=== PATIENT | female | born 1965 | race Hispanic/Latino ===

== ENCOUNTER 2023-03-24 16:12 | Emergency (ER) | payer MEDICAID, SELFPAY ==
[2023-03-24 16:28] VITALS: BP 112/85; PULSE 73; RESP 16; TEMP 37; O2SAT 99
--- NOTE | 2023-03-24 16:50 | ED.URI ---
HPI - URI/Sore Throat General Chief Complaint: Upper Respiratory Infection Stated Complaint: fever,cough,back pain, headache Time Seen by Provider: 03/24/23 16:50 Source: patient Mode of arrival: ambulatory Limitations: no limitations History of Present Illness HPI Narrative: 57-year-old female presents with complaint of nasal congestion, sinus pressure, postnasal drainage, coughing, fatigue for the past 2 weeks. Over the last several days has had pain to upper back from coughing. Afebrile. Not taking any [id number] medications to treat symptoms. All systems reviewed and negative except as noted. Related Data Home Medications Medication Instructions Recorded Confirmed atorvastatin 10 mg tablet 10 mg PO DAILY 03/24/23 03/24/23 calcium carbonate 600 mg-vitamin 1 tablet PO DAILY 03/24/23 03/24/23 D3 10 mcg (400 unit) tablet canagliflozin 100 mg tablet 100 mg PO DAILY 03/24/23 03/24/23 (Invokana) gabapentin 100 mg capsule 100 mg PO PRN PRN Pain 03/24/23 03/24/23 metformin 1,000 mg tablet 1,000 mg PO BID 03/24/23 03/24/23 Allergies Allergy/AdvReac Type Severity Reaction Status Date / Time No Known Allergies Allergy Verified 03/24/23 16:39 Review of Systems Review of Systems: CONSTITUTIONAL: Denies fever, chills, or sweats. EYES: Denies visual changes, redness, or discharge. ENT: Reports rhinorrhea, congestion, sore throat. Denies otalgia. CARDIOVASCULAR: Denies chest pain, palpitations, or edema. RESPIRATORY: reports cough. Denies dyspnea. GASTROINTESTINAL: Denies abdominal pain, nausea, vomiting, or diarrhea. GENITOURINARY: Denies dysuria or hematuria. SKIN: Denies rash or itching. MUSCULOSKELETAL: Denies back pain, joint pain, or myalgia. NEUROLOGIC: Denies headache, numbness, or weakness. PSYCHIATRIC: Denies anxiety or depression. All other systems reviewed are negative, except as documented in HPI. PMFSH Comments At time of signature, agree with nursing past medical, surgical, social and family history. There is no relevant family history pertinent to the presenting complaint. Exam Narrative: GENERAL: This is a well-nourished, well-developed patient, patient ill-appearing but no acute distress. HEAD: normocephalic, atraumatic. EYES: PERRL. Sclera clear/white. Vision is grossly intact. EARS: External ears normal, auditory canals clear and without drainage Fluid bilateral TMs without erythema or perforation. Hearing grossly intact. NOSE: External nose normal with moderate nasal congestion, erythema and drainage bilateral nares THROAT: Mucous membranes moist, erythema with postnasal drainage. NECK: Neck supple, non-tender without lymphadenopathy, masses or thyromegaly. CARDIOVASCULAR: Regular rate and rhythm without murmurs, gallops, or rubs. RESPIRATORY: Clear to auscultation. Breath sounds equal bilaterally. No wheezes, rales, or rhonchi. SKIN: warm, Dry, intact with no suspicious lesions or rash, good texture and turgor. NEURO: awake, alert, and oriented to person, place and time. There were no obvious focal neurologic abnormalities. EXTREMITIES: No joint tenderness, effusion, or edema noted. Course Course Level of Care: Express Care Visit Vital Signs Vital signs: Vital Signs Temperature 37.0 C 03/24/23 16:28 Pulse Rate 73 03/24/23 16:28 Respiratory Rate 16 03/24/23 16:28 Blood Pressure 112/85 03/24/23 16:28 Pulse Oximetry 99 03/24/23 16:28 Oxygen Delivery Room Air 03/24/23 16:28 Temperature 37.0 C 03/24/23 16:28 Pulse Rate 73 03/24/23 16:28 Respiratory Rate 16 03/24/23 16:28 Blood Pressure 112/85 03/24/23 16:28 Pulse Oximetry 99 03/24/23 16:28 Oxygen Delivery Room Air 03/24/23 16:28 Reviewed MDM - URI/Sore Throat MDM Narrative Medical decision making narrative: Patient is aware of diagnosis, understands and agrees to treatment plan. Anticipatory guidance given. Patient agrees to follow-up as directed and is
== END 2023-03-24 17:11 | disposition home or self-care (01) ==
PROVIDERS: Emergency Provider Nurse Practitioner Family; PCP Physician Assistant
DX: J01.90 Acute sinusitis, unspecified (principal); E78.00 Pure hypercholesterolemia, unspecified; E11.9 Type 2 diabetes mellitus without complications
CPT/HCPCS: 87880; 99203; G0463

== ENCOUNTER 2024-02-08 08:17 | Emergency (ER) | payer OTHER, SELFPAY ==
--- NOTE | ~2024-02-08 | XR_ITS ---
EXAMINATION: XR abdomen/kub 1V DATE: 02/08/2024 08:51 INDICATION: Abdominal pain. TECHNIQUE: A supine view of the abdomen was obtained. COMPARISON: None. FINDINGS: Large amount of stool scattered throughout the colon which could be seen with constipation. No dilate d loops of gas-filled bowel to suggest obstruction. Mild degenerative skeletal changes in the lumbar spine and pelvis. IMPRESSION: 1. Nonobstructive bowel gas pattern with large amount of colonic stool suggestive of constipation. Reviewed, dictated and finalized at location A. [employer] IMPRESSION: 1. Nonobstructive bowel gas pattern with large amount of colonic stool suggesti ve of constipation.
[2024-02-08 08:27] VITALS: BP 128/85; PULSE 70; RESP 18; TEMP 36.1; O2SAT 99
--- NOTE | 2024-02-08 08:45 | ED.ABDPAIN ---
HPI - Abdominal Pain General Chief Complaint: Abdominal Pain Stated Complaint: Abdominal Pain Time Seen by Provider: 02/08/24 08:33 Source: patient, family (Son) and RN notes reviewed Mode of arrival: ambulatory Limitations: no limitations History of Present Illness HPI narrative: Patient presents today complaining of a abdominal pain since yesterday. It is primarily located in the right upper quadrant radiating to the back as well as in the suprapubic area. Pain is constant but waxes and wanes. She also has belching and flatulence associated. She tried some Gas-X and Advil, which did provide some relief, but today currently rates her pain 8/10. Three days ago she started a fiber supplement for constipation and has had some regular bowel movements. Still has gallbladder and appendix. Related Data Home Medications Medication Instructions Recorded Confirmed atorvastatin 10 mg tablet 10 mg PO DAILY 02/08/24 02/08/24 calcium 600 mg (as 1 tablet PO DIRECTED 02/08/24 02/08/24 carbonate)-vitamin D3 10 mcg (400 unit) tablet canagliflozin 100 mg tablet 100 mg PO DIRECTED 02/08/24 02/08/24 (Invokana) gabapentin 100 mg capsule 100 mg PO DIRECTED 02/08/24 02/08/24 metformin 1,000 mg tablet 1,000 mg PO DIRECTED 02/08/24 02/08/24 Allergies Allergy/AdvReac Type Severity Reaction Status Date / Time No Known Allergies Allergy Verified 02/08/24 08:20 Review of Systems Review of Systems: CONSTITUTIONAL: Denies body aches, fever, chills, or sweats. EYES: Denies visual changes, redness, or discharge. ENT: Denies rhinorrhea, congestion, sore throat, or otalgia. CARDIOVASCULAR: Denies chest pain, palpitations, or edema. RESPIRATORY: Denies cough or dyspnea. GASTROINTESTINAL: Denies vomiting, or diarrhea.+ abdominal pain, nausea GENITOURINARY: Denies dysuria or hematuria. SKIN: Denies rash, itching, or wounds. MUSCULOSKELETAL: Denies back pain, joint pain, or myalgia. NEUROLOGIC: Denies headache, numbness, tingling, or weakness. PSYCH: Denies depression or anxiety. [facility] Past Medical History Medical History (Updated 02/08/24 @ 09:18 by Greer Gloria, [facility], ) Diabetes High cholesterol Comments At time of signature, I have reviewed and agree with nursing past medical, surgical, social and family history unless otherwise noted. Please see nursing chart for further information. There is no relevant family history pertinent to the presenting complaint Exam Narrative: GENERAL: Well-appearing, well-nourished, and in moderate pain distress. HEAD: Normocephalic, atraumatic. EYES: EOMI. No redness or drainage. Conjunctivae normal. ENT: Mucous membranes pink and moist. NECK: Normal AROM. CHEST: No respiratory distress. Clear to auscultation. HEART: Regular rate and rhythm. No murmur appreciated. ABDOMEN: Soft, nondistended, normal active bowel sounds. + mild suprapubic tenderness. No CVA tenderness. EXTREMITIES: Normal range of motion. No edema. SKIN: Warm, dry, no rash. Capillary refill normal. Normal skin turgor. NEURO: No focal deficits. Alert and oriented x3. Gait steady. PSYCH: Normal affect. No signs of depression or anxiety. Course Course Level of Care: Express Care Visit Vital Signs Vital signs: Vital Signs Temperature 97 F L 02/08/24 08:27 Pulse Rate 70 02/08/24 08:27 Respiratory Rate 18 02/08/24 08:27 Blood Pressure 128/85 02/08/24 08:27 Pulse Oximetry 99 02/08/24 08:27 Oxygen Delivery Room Air 02/08/24 08:27 Temperature 97 F L 02/08/24 08:27 Pulse Rate 70 02/08/24 08:27 Respiratory Rate 18 02/08/24 08:27 Blood Pressure 128/85 02/08/24 08:27 Pulse Oximetry 99 02/08/24 08:27 Oxygen Delivery Room Air 02/08/24 08:27 Reviewed MDM - Abdominal Pain MDM Narrative Medical decision making narrative: X-ray shows large amount of stool in the colon suggestive of constipation. Discussed options for resolution with son and patient. Anticipatory guidance given. Differential Diagnosis Differential diagnosis: Likely abdominal pain, acute appendicitis, constipation, diverticulitis and other (obstruction, UTI) Imaging Data Radiologist's impression: ITS Impressions Abdomen X-Ray 02/08/24 09:01 IMPRESSION: 1. Nonobstructive bowel gas pattern with large amount of colonic stool suggestive of constipation. Critical Care Time Critical Care Time Critical Care Time: No Discharge Plan Discharge Clinical Impression: Constipation Patient Disposition: Home, Self-Care Condition: Stable Instructions: Polyethylene Glycol 3350 (By mouth), Constipation (DC) Additional Instructions: Your x-ray shows a large amount of stool in your colon (significant constipation). Please start medication such as: 1. Miralax (polyethylene glycol): You may need to take this daily for several days. 2. A stimulant laxative such as Dulcolax (biscodyl): This may help quicker, but you may have more cramping with this option. 3. Fleet's enema 4. A different kind of laxative such as senna or Senokot, which may be better tolerated then Dulcolax. If your stool is firm, you may want to add a stool softener such as Colace (docusate) along with a laxative option to help past your stool more easily. Please increased your water intake as well. Follow-up with your PCP in 3 days if your symptoms are not improving. Go to the ER if symptoms worsen. Your blood pressure was elevated above 120/80 today at Urgent Care. This puts you above the threshold for follow up. Please schedule a followup visit with your personal physician as soon as possible, for further evaluation and treatment. Even blood pressure exceeding 120/80 may indicate pre-hypertension. Prescriptions: No Action atorvastatin 10 mg tablet 10 mg PO DAILY metformin 1,000 mg tablet 1,000 mg PO DIRECTED gabapentin 100 mg capsule 100 mg PO DIRECTED calcium carbonate-vitamin D3 600 mg-10 mcg (400 unit) tablet 1 tablet PO DIRECTED Invokana 100 mg tablet 100 mg PO DIRECTED Follow-up/Referrals: Nuha,ANABELLE Antonio [Primary Care Provider] - Time of Disposition: 09:18
== END 2024-02-08 09:25 | disposition home or self-care (01) ==
PROVIDERS: Emergency Provider Nurse Practitioner; PCP Physician Assistant
DX: K59.00 Constipation, unspecified (principal); E11.9 Type 2 diabetes mellitus without complications; E78.00 Pure hypercholesterolemia, unspecified
CPT/HCPCS: 74018; 99213; G0463